=== PATIENT | female | born 1995 | race Caucasian/White ===

== ENCOUNTER 2018-04-06 15:15 | Emergency (ER) | payer OTHER, SELFPAY ==
[2018-04-06 15:36] VITALS: BP 129/76; PULSE 87; RESP 16; TEMP 37.1; O2SAT 100
--- NOTE | 2018-04-06 16:59 | ED.URI ---
HPI - URI/Sore Throat <Alicia Luna PA-C - Last Filed: 04/06/18 22:36> General Chief Complaint: Upper Respiratory Symptoms Stated Complaint: SORE THROAT, WAS TOLD ITS OBSTRUCTING HER AIRWAY Time Seen by Provider: 04/06/18 16:59 Source: patient and other Mode of arrival: ambulatory Limitations: no limitations History of Present Illness HPI Narrative: This healthy 23-year-old female is sent here from the walk-in clinic due to concern for peritonsillar abscess. She has had 10 day history of sore throat and swallowing. Has been seen at walk-in clinics twice and had negative strep test each time. She states that initially the sore throat was more on the right but in the last few days seems more localized on the left, painful to swallow and her glands feel sore and swollen. She states that she does not have wheeze or dyspnea. She states that she is not having trouble swallowing due to feeling obstructed but pain prevents her. She has not had any fever, sinus pain, congestion, cough or other upper respiratory symptoms. No recent rash. No known exposures. She denies any possibility of stating she is on OCP, last menses 1 week ago and no intercourse since. Related Data Home Medications Medication Instructions Recorded Confirmed Control Pill 1 tab PO DAILY 04/06/18 04/06/18 ibuprofen [Advil] 200 mg PO Q6-8H PRN 04/06/18 04/06/18 Previous Rx's Medication Instructions Recorded clindamycin HCl 300 mg PO Q6H 10 Days #40 cap 04/06/18 dexamethasone 4 mg PO Q12H #10 tab 04/06/18 Review of Systems <Alicia Luna PA-C - Last Filed: 04/06/18 22:36> Review of Systems All systems reviewed & are unremarkable except as noted in HPI and below Exam <Alicia Luna PA-C - Last Filed: 04/06/18 22:36> Initial Vital Signs Initial Vital Signs: Vital Signs Temperature 98.8 F 04/06/18 15:36 Pulse Rate 87 04/06/18 15:36 Respiratory Rate 16 04/06/18 15:36 Blood Pressure 129/76 H 04/06/18 15:36 Pulse Oximetry 100 04/06/18 15:36 GENERAL APPEARANCE: Patient sitting comfortably, in no distress. HEAD: No sinus TTP. EYES: PERRL, EOMI. EARS: Normal auditory canals, TMS intact with normal light reflexes. ORAL CAVITY: Normal oropharynx. THROAT: Mild erythema without exudate, left tonsil is enlarged and deviates the uvula minimally, right is normal. On repeat exam prior to discharge tonsillar edema is improved and there is no uvular deviation NECK/THYROID: Neck supple, full range of motion, tender submandibular and cervical lymphadenopathy more pronounced on the left. LUNGS: Clear to auscultation bilaterally, clear to percussion, no cough on exam. HEART: RRR without murmur, nl S1, S2, no S3 or S4. EXTREMITIES: No cyanosis or edema <Carlos Panchal DO - Last Filed: 04/07/18 03:52> Initial Vital Signs Initial Vital Signs: Vital Signs Temperature 98.8 F 04/06/18 15:36 Pulse Rate 87 04/06/18 15:36 Respiratory Rate 16 04/06/18 15:36 Blood Pressure 129/76 H 04/06/18 15:36 Pulse Oximetry 100 04/06/18 15:36 Course <Alicia Luna PA-C - Last Filed: 04/06/18 22:36> Additional Information: Patient reported feeling greatly improved following IV medications. She had improvement in tonsillar edema. She was able to swallow water easily. Prescriptions were faxed in for her locally. She is planning to return home to [facility], so she was advised to get to the ED if she had acutely worsening symptoms again. We were able to get in touch with the on-call Ear Nose and Throat physician, Dr. Johnston, at the [facility] and he advised that she get to the ED there if acutely worsening, otherwise his clinic will call her directly to arrange follow-up. Orders Ordered: Discontinued Medications Clindamycin Phosphate (Cleocin) 900 mg in 50 mls @ 50 mls/hr IV NOW ONE Stop: 04/06/18 18:09 Last Infusion: 04/06/18 18:34 Dose: 0 mls/hr Admin: 04/06/18 17:38 Dose: 50 mls/hr Dexamethasone 40 mg/ Sodium (Chloride) 60 mls @ 240 mls/hr IV NOW ONE Stop: 04/06/18 17:11 Last Infusion: 04/06/18 17:53 Dose: 0 mls/hr Admin: 04/06/18 17:37 Dose: 240 mls/hr Sodium Chloride (Normal Saline 0.9%) 1,000 mls @ 1,000 mls/hr IV BOLUS ONE Stop: 04/06/18 18:09 Last Infusion: 04/06/18 18:34 Dose: 0 mls/hr Admin: 04/06/18 17:37 Dose: 1,000 mls/hr Vital Signs - 8 hr 04/06/18 15:36 04/06/18 17:24 04/06/18 18:52 Temperature 98.8 F Pulse Rate 87 84 94 H Respiratory Rate 16 14 12 Blood Pressure 129/76 H Blood Pressure [Left Arm] 122/63 H 125/72 H Pulse Oximetry 100 100 99 <Carlos Panchal DO - Last Filed: 04/07/18 03:52> Orders Ordered: Discontinued Medications Clindamycin Phosphate (Cleocin) 900 mg in 50 mls @ 50 mls/hr IV NOW ONE Stop: 04/06/18 18:09 Last Infusion: 04/06/18 18:34 Dose: 0 mls/hr Admin: 04/06/18 17:38 Dose: 50 mls/hr Dexamethasone 40 mg/ Sodium (Chloride) 60 mls @ 240 mls/hr IV NOW ONE Stop: 04/06/18 17:11 Last Infusion: 04/06/18 17:53 Dose: 0 mls/hr Admin: 04/06/18 17:37 Dose: 240 mls/hr Sodium Chloride (Normal Saline 0.9%) 1,000 mls @ 1,000 mls/hr IV BOLUS ONE Stop: 04/06/18 18:09 Last Infusion: 04/06/18 18:34 Dose: 0 mls/hr Admin: 04/06/18 17:37 Dose: 1,000 mls/hr Vital Signs - 8 hr 04/06/18 15:36 04/06/18 17:24 04/06/18 18:52 Temperature 98.8 F Pulse Rate 87 84 94 H Respiratory Rate 16 14 12 Blood Pressure 129/76 H Blood Pressure [Left Arm] 122/63 H 125/72 H Pulse Oximetry 100 100 99 MDM - URI/Sore Throat <Alicia Luna PA-C - Last Filed: 04/06/18 22:36> Lab Data Attestation: I reviewed the patient's lab results. Result diagrams: 04/06/18 15:50 04/06/18 15:50 Lab Results 04/06/18 04/06/18 04/06/18 Range/Units 15:50 15:50 17:43 WBC 7.9 (4.5-11.0) X10^3/uL RBC 4.15 (4.0-5.2) X10^6/uL Hgb 12.8 (12.0-16.0) g/dL Hct 37.7 (36-46) % MCV 90.9 (80-100) fL MCH 30.8 (26-34) PG MCHC 33.9 (30-36) % RDW 12.6 (11.6-14.8) % Plt Count 251 (150-400) X10^3/uL Neut % (Auto) 64.6 (50-75) % Lymph % (Auto) 24.8 L (25-40) % [place] % (Auto) 9.0 (3-14) % Eos % (Auto) 0.9 L (2-4) % Baso % (Auto) 0.7 (0-2) % Neut # (Auto) 5100 (1151-4154) /uL Sodium 142 (137-145) mmol/L Potassium 4.1 (3.4-5.1) mmol/L Chloride 101 (98-107) mmol/L Carbon Dioxide 28 (22-32) mmol/L BUN 9 (7-17) mg/dL Creatinine 0.60 (0.52-1.04) mg/dL Estimated GFR > 60.0 (>60) mL/min BUN/Creatinine Ratio 15.0 (6-22) Glucose 99 (70-100) mg/dL Lactate 0.7 (0.7-2.1) mmol/L Calcium 9.5 (8.4-10.2) mg/dL <Carlos Panchal, DO - Last Filed: 04/07/18 03:52> Lab Data Lab Results 04/06/18 04/06/18 04/06/18 Range/Units 15:50 15:50 17:43 WBC 7.9 (4.5-11.0) X10^3/uL RBC 4.15 (4.0-5.2) X10^6/uL Hgb 12.8 (12.0-16.0) g/dL Hct 37.7 (36-46) % MCV 90.9 (80-100) fL MCH 30.8 (26-34) PG MCHC 33.9 (30-36) % RDW 12.6 (11.6-14.8) % Plt Count 251 (150-400) X10^3/uL Neut % (Auto) 64.6 (50-75) % Lymph % (Auto) 24.8 L (25-40) % [place] % (Auto) 9.0 (3-14) % Eos % (Auto) 0.9 L (2-4) % Baso % (Auto) 0.7 (0-2) % Neut # (Auto) 5100 (6962-5487) /uL Sodium 142 (137-145) mmol/L Potassium 4.1 (3.4-5.1) mmol/L Chloride 101 (98-107) mmol/L Carbon Dioxide 28 (22-32) mmol/L BUN 9 (7-17) mg/dL Creatinine 0.60 (0.52-1.04) mg/dL Estimated GFR > 60.0 (>60) mL/min BUN/Creatinine Ratio 15.0 (6-22) Glucose 99 (70-100) mg/dL Lactate 0.7 (0.7-2.1) mmol/L Calcium 9.5 (8.4-10.2) mg/dL Discharge Plan Departure Patient Disposition: Home, Self-Care Clinical Impression: Abscess, peritonsillar Discharge Date/Time: 04/06/18 19:48 Interventions: ED Discharge Assessment Last Done: 04/06/18 19:47 Instructions: DI for Peritonsillar Abscess -- Adult Activity Restrictions/Additional Instructions: I have sent prescriptions for antibiotic, which you should take at bedtime tonight, and steroids, which you should resume tomorrow morning, to [facility]'s here in town for you. You should get to the closest ED if you feel acutely worse again since you are heading home tonight. Dr. Johnston from the ear nose and throat specialty Clinic at the [place] [facility] will call you to set up a follow-up visit. Please call them at [phone] if you do not hear from them tomorrow. When you are back in [place] he prefers for you to go to ED if you have any problems. Prescriptions: New clindamycin HCl 300 mg capsule 300 mg PO Q6H 10 Days Qty: 40 RF: 0 dexamethasone 4 mg tablet 4 mg PO Q12H Qty: 10 RF: 0 No Action ibuprofen [Advil] 200 mg Tablet 200 mg PO Q6-8H PRN (Reason: Pain, Mild) RF: 0 Control Pill 1 tab PO DAILY RF: 0 Referrals: [facility] [Other] Dr. Johnston, Otol[facility]ology Clinic [Other] <Carlos Panchal, - Last Filed: 04/07/18 03:52> Cosign ED Attending Bruce Attestation: I was immediately available in the department for consultation. Documentation has been reviewed. I agree with assessment and plan.
[2018-04-06 17:24] VITALS: BP 122/63; PULSE 84; RESP 14; O2SAT 100
--- NOTE | 2018-04-06 17:29 | ED_ITS ---
HPI - URI/Sore Throat <Alicia Luna PA-C - Last Filed: 04/06/18 22:36> General Chief Complaint: Upper Respiratory Symptoms Stated Complaint: SORE THROAT, WAS TOLD ITS OBSTRUCTING HER AIRWAY Time Seen by Provider: 04/06/18 16:59 Source: patient and other Mode of arrival: ambulatory Limitations: no limitations History of Present Illness HPI Narrative: This healthy 23-year-old female is sent here from the walk-in clinic due to concern for peritonsillar abscess. She has had 10 day history of sore throat and swallowing. Has been seen at walk-in clinics twice and had negative strep test each time. She states that initially the sore throat was more on the right but in the last few days seems more localized on the left, painful to swallow and her glands feel sore and swollen. She states that she does not have wheeze or dyspnea. She states that she is not having trouble swallowing due to feeling obstructed but pain prevents her. She has not had any fever, sinus pain, congestion, cough or other upper respiratory symptoms. No recent rash. No known exposures. She denies any possibility of stating she is on OCP, last menses 1 week ago and no intercourse since. Related Data Home Medications Medication Instructions Recorded Confirmed Control Pill 1 tab PO DAILY 04/06/18 04/06/18 ibuprofen [Advil] 200 mg PO Q6-8H PRN 04/06/18 04/06/18 Previous Rx's Medication Instructions Recorded clindamycin HCl 300 mg PO Q6H 10 Days #40 cap 04/06/18 dexamethasone 4 mg PO Q12H #10 tab 04/06/18 Review of Systems <Alicia Luna PA-C - Last Filed: 04/06/18 22:36> Review of Systems All systems reviewed & are unremarkable except as noted in HPI and below Exam <Alicia Luna PA-C - Last Filed: 04/06/18 22:36> Initial Vital Signs Initial Vital Signs: Vital Signs Temperature 98.8 F 04/06/18 15:36 Pulse Rate 87 04/06/18 15:36 Respiratory Rate 16 04/06/18 15:36 Blood Pressure 129/76 H 04/06/18 15:36 Pulse Oximetry 100 04/06/18 15:36 GENERAL APPEARANCE: Patient sitting comfortably, in no distress. HEAD: No sinus TTP. EYES: PERRL, EOMI. EARS: Normal auditory canals, TMS intact with normal light reflexes. ORAL CAVITY: Normal oropharynx. THROAT: Mild erythema without exudate, left tonsil is enlarged and deviates the uvula minimally, right is normal. On repeat exam prior to discharge tonsillar edema is improved and there is no uvular deviation NECK/THYROID: Neck supple, full range of motion, tender submandibular and cervical lymphadenopathy more pronounced on the left. LUNGS: Clear to auscultation bilaterally, clear to percussion, no cough on exam. HEART: RRR without murmur, nl S1, S2, no S3 or S4. EXTREMITIES: No cyanosis or edema <Carlos Panchal DO - Last Filed: 04/07/18 03:52> Initial Vital Signs Initial Vital Signs: Vital Signs Temperature 98.8 F 04/06/18 15:36 Pulse Rate 87 04/06/18 15:36 Respiratory Rate 16 04/06/18 15:36 Blood Pressure 129/76 H 04/06/18 15:36 Pulse Oximetry 100 04/06/18 15:36 Course <Alicia Luna PA-C - Last Filed: 04/06/18 22:36> Additional Information: Patient reported feeling greatly improved following IV medications. She had improvement in tonsillar edema. She was able to swallow water easily. Prescriptions were faxed in for her locally. She is planning to return home to [facility], so she was advised to get to the ED if she had acutely worsening symptoms again. We were able to get in touch with the on- call Ear Nose and Throat physician, Dr. Johnston, at the [facility] and he advised that she get to the ED there if acutely worsening, otherwise his clinic will call her directly to arrange follow-up. Orders Ordered: Discontinued Medications Clindamycin Phosphate (Cleocin) 900 mg in 50 mls @ 50 mls/hr IV NOW ONE Stop: 04/06/18 18:09 Last Infusion: 04/06/18 18:34 Dose: 0 mls/hr Admin: 04/06/18 17:38 Dose: 50 mls/hr Dexamethasone 40 mg/ Sodium (Chloride) 60 mls @ 240 mls/hr IV NOW ONE Stop: 04/06/18 17:11 Last Infusion: 04/06/18 17:53 Dose: 0 mls/hr Admin: 04/06/18 17:37 Dose: 240 mls/hr Sodium Chloride (Normal Saline 0.9%) 1,000 mls @ 1,000 mls/hr IV BOLUS ONE Stop: 04/06/18 18:09 Last Infusion: 04/06/18 18:34 Dose: 0 mls/hr Admin: 04/06/18 17:37 Dose: 1,000 mls/hr Vital Signs - 8 hr 04/06/18 15:36 04/06/18 17:24 04/06/18 18:52 Temperature 98.8 F Pulse Rate 87 84 94 H Respiratory Rate 16 14 12 Blood Pressure 129/76 H Blood Pressure [Left Arm] 122/63 H 125/72 H Pulse Oximetry 100 100 99 <Carlos Panchal DO - Last Filed: 04/07/18 03:52> Orders Ordered: Discontinued Medications Clindamycin Phosphate (Cleocin) 900 mg in 50 mls @ 50 mls/hr IV NOW ONE Stop: 04/06/18 18:09 Last Infusion: 04/06/18 18:34 Dose: 0 mls/hr Admin: 04/06/18 17:38 Dose: 50 mls/hr Dexamethasone 40 mg/ Sodium (Chloride) 60 mls @ 240 mls/hr IV NOW ONE Stop: 04/06/18 17:11 Last Infusion: 04/06/18 17:53 Dose: 0 mls/hr Admin: 04/06/18 17:37 Dose: 240 mls/hr Sodium Chloride (Normal Saline 0.9%) 1,000 mls @ 1,000 mls/hr IV BOLUS ONE Stop: 04/06/18 18:09 Last Infusion: 04/06/18 18:34 Dose: 0 mls/hr Admin: 04/06/18 17:37 Dose: 1,000 mls/hr Vital Signs - 8 hr 04/06/18 15:36 04/06/18 17:24 04/06/18 18:52 Temperature 98.8 F Pulse Rate 87 84 94 H Respiratory Rate 16 14 12 Blood Pressure 129/76 H Blood Pressure [Left Arm] 122/63 H 125/72 H Pulse Oximetry 100 100 99 MDM - URI/Sore Throat <Alicia Luna PA-C - Last Filed: 04/06/18 22:36> Lab Data Attestation: I reviewed the patient's lab results. Result diagrams: 04/06/18 15:50 04/06/18 15:50 Lab Results 04/06/18 04/06/18 04/06/18 Range/Units 15:50 15:50 17:43 WBC 7.9 (4.5-11.0) X10^3/uL RBC 4.15 (4.0-5.2) X10^6/uL Hgb 12.8 (12.0-16.0) g/dL Hct 37.7 (36-46) % MCV 90.9 (80-100) fL MCH 30.8 (26-34) PG MCHC 33.9 (30-36) % RDW 12.6 (11.6-14.8) % Plt Count 251 (150-400) X10^3/uL Neut % (Auto) 64.6 (50-75) % Lymph % (Auto) 24.8 L (25-40) % [place] % (Auto) 9.0 (3-14) % Eos % (Auto) 0.9 L (2-4) % Baso % (Auto) 0.7 (0-2) % Neut # (Auto) 5100 (7871-2798) /uL Sodium 142 (137-145) mmol/L Potassium 4.1 (3.4-5.1) mmol/L Chloride 101 (98-107) mmol/L Carbon Dioxide 28 (22-32) mmol/L BUN 9 (7-17) mg/dL Creatinine 0.60 (0.52-1.04) mg/dL Estimated GFR > 60.0 (>60) mL/min BUN/Creatinine Ratio 15.0 (6-22) Glucose 99 (70-100) mg/dL Lactate 0.7 (0.7-2.1) mmol/L Calcium 9.5 (8.4-10.2) mg/dL <Carlos Panchal, DO - Last Filed: 04/07/18 03:52> Lab Data Lab Results 04/06/18 04/06/18 04/06/18 Range/Units 15:50 15:50 17:43 WBC 7.9 (4.5-11.0) X10^3/uL RBC 4.15 (4.0-5.2) X10^6/uL Hgb 12.8 (12.0-16.0) g/dL Hct 37.7 (36-46) % MCV 90.9 (80-100) fL MCH 30.8 (26-34) PG MCHC 33.9 (30-36) % RDW 12.6 (11.6-14.8) % Plt Count 251 (150-400) X10^3/uL Neut % (Auto) 64.6 (50-75) % Lymph % (Auto) 24.8 L (25-40) % [place] % (Auto) 9.0 (3-14) % Eos % (Auto) 0.9 L (2-4) % Baso % (Auto) 0.7 (0-2) % Neut # (Auto) 5100 (3219-1145) /uL Sodium 142 (137-145) mmol/L Potassium 4.1 (3.4-5.1) mmol/L Chloride 101 (98-107) mmol/L Carbon Dioxide 28 (22-32) mmol/L BUN 9 (7-17) mg/dL Creatinine 0.60 (0.52-1.04) mg/dL Estimated GFR > 60.0 (>60) mL/min BUN/Creatinine Ratio 15.0 (6-22) Glucose 99 (70-100) mg/dL Lactate 0.7 (0.7-2.1) mmol/L Calcium 9.5 (8.4-10.2) mg/dL Discharge Plan Departure Patient Disposition: Home, Self-Care Clinical Impression: Abscess, peritonsillar Discharge Date/Time: 04/06/18 19:48 Interventions: ED Discharge Assessment Last Done: 04/06/18 19:47 Instructions: DI for Peritonsillar Abscess -- Adult Activity Restrictions/Additional Instructions: I have sent prescriptions for antibiotic, which you should take at bedtime tonight, and steroids, which you should resume tomorrow morning, to [facility]'s here in town for you. You should get to the closest ED if you feel acutely worse again since you are heading home tonight. Dr. Johnston from the ear nose and throat specialty Clinic at the [place] will call you to set up a follow-up visit. Please call them at [phone] if you do not hear from them tomorrow. When you are back in [place] he prefers for you to go to ED if you have any problems. Prescriptions: New clindamycin HCl 300 mg capsule 300 mg PO Q6H 10 Days Qty: 40 RF: 0 dexamethasone 4 mg tablet 4 mg PO Q12H Qty: 10 RF: 0 No Action ibuprofen [Advil] 200 mg Tablet 200 mg PO Q6-8H PRN (Reason: Pain, Mild) RF: 0 Control Pill 1 tab PO DAILY RF: 0 Referrals: [facility] [Other] Dr. Johnston, Otol[facility]ology Clinic [Other] <Carlos Panchal, - Last Filed: 04/07/18 03:52> Cosign ED Attending Bruce Attestation: I was immediately available in the department for consultation. Documentation has been reviewed. I agree with assessment and plan.
[2018-04-06 17:34] LABS: Add Manual Diff / Slide Review NO; Basophils Percent Auto 0.7 % (0-2); Eosinophils Percent Auto 0.9 % (2-4); Hematocrit 37.7 % (36-46); Hemoglobin 12.8 g/dL (12.0-16.0); Lymphocytes Percent Auto 24.8 % (25-40); Mean Corpuscular HGB Conc 33.9 % (30-36); Mean Corpuscular Hemoglobin 30.8 PG (26-34); Mean Corpuscular Volume 90.9 fL (80-100); Neutrophils Absolute Auto 5100 /uL (3000-5900); Neutrophils Percent Auto 64.6 % (50-75); Platelet Count 251 X10^3/uL (150-400); Red Blood Cell Count 4.15 X10^6/uL (4.0-5.2); Red Cell Distribution Width 12.6 % (11.6-14.8); White Blood Cell Count 7.9 X10^3/uL (4.5-11.0)
[2018-04-06] MEDS: SODIUM CHLORIDE 0.9% 1,000 ML 1000 ML IV (17:37)
[2018-04-06] MEDS: DEXAMETHASONE 40 MG in SODIUM CHLORIDE 0.9% 50 ML 240 ML IV (17:37)
[2018-04-06] MEDS: CLINDAMYCIN 900 MG/50 ML PIGGYBACK 50 MG IV (17:38)
[2018-04-06 17:39] LABS: Blood Urea Nitrogen 9 mg/dL (7-17); Calcium 9.5 mg/dL (8.4-10.2); Carbon Dioxide 28 mmol/L (22-32); Chloride 101 mmol/L (98-107); Estimated Glomerular Filt Rate > 60.0 mL/min (>60); Glucose 99 mg/dL (70-100); HEMOLYSIS < 15 (0-50); Potassium 4.1 mmol/L (3.4-5.1); Sodium 142 mmol/L (137-145)
[2018-04-06 18:01] LABS: Lactate (Lactic Acid) 0.7 mmol/L (0.7-2.1)
[2018-04-06 18:52] VITALS: BP 125/72; PULSE 94; RESP 12; O2SAT 99
== END 2018-04-06 19:48 | disposition home or self-care (01) ==
PROVIDERS: Emergency Provider Internal Medicine
DX: J36 Peritonsillar abscess (principal)
CPT/HCPCS: 36591; 80048; 83605; 85025; 96361; 96365; 96375; 99283; 99284; J1100